=== PATIENT | female | born 1955 | race Caucasian/White ===

== ENCOUNTER 2018-06-23 13:18 | Emergency (ER) | payer OTHER ==
[~2018-06-23] VITALS: Ht 152.4 cm; Wt 101.6 kg
[~2018-06-23 13:18] MED LIST: ACET325T9 PO; ASCO100T4 PO; ASCO500T2 PO; CALC600T4 PO; CELE200C PO; CHOL100013 PO; CLON0.5T11 PO; DIPH25CA58 PO; ESZO3TAB28 PO; HYDR-3165 PO; HYDR12.58 PO; LEXAPRO5 MG PO; PARO10TA57 PO; POTA500T5 PO; SERT100T PO; TRAZ-85 PO; VITA100T5 PO; VITA1TAB3 PO
--- NOTE | 2018-06-23 13:40 | RAD ---
CT HEAD INDICATION: Neuro deficits COMPARISON: None Available. Exposure: One or more of the following individualized dose reduction techniques were utilized for this examination: 1. Automated exposure control 2. Adjustment of the mA and/or kV according to patient size 3. Use of iterative reconstruction technique TECHNIQUE: 5 mm contiguous axial images were obtained from the skull base to the vertex in both bone and soft tissue algorithm. FINDINGS: No abnormal attenuation within the brain parenchyma. No evidence of acute intracranial hemorrhage. No extra-axial fluid collections. No mass effect or midline shift. Ventricular size is appropriate. Basal cisterns are patent. No fractures identified.Rebolledo-white differentiation is preserved.Globes and orbits are within normal limits. Paranasal sinuses and mastoid air cells are clear. IMPRESSION: No acute intracranial findings. Dr. Fulton called at time of dictation. Electronically signed by: Alejandro Mcwilliams MD (06/23/2018 1:37 PM) [place] [id number]
--- NOTE | 2018-06-23 13:43 | PHYS DOC ---
Past History Past Medical History: Anxiety, Arthritis Past Surgical History: , Hysterectomy, Other Smoking: Non-smoker Alcohol Use: Occasionally Drug Use: None Adult General Chief Complaint Chief Complaint: NEURO SYMPTOMS/DEFICITS HPI HPI Patient is a 63 year old female who brought in by EMS because of altered level of consciousness and confusion. Patient is confused and unable to give history and does not remember the event. EMS reported that patient was found in her car off of the road for unknown time in a busy street [place] town and was not able to remember why she is in the car and brought happened to her. EMS reported patient was confused and had slurred speech that gradually improved partially. Patient also had problem with walking from her car today ambulance and had ataxia but was able to move her upper extremities without problem. Patient had blood pressure of 205/110 at the scene without history of hypertension. Review of Systems Review of Systems Unable to obtain because of confusion Allergies Allergies Allergies Coded Allergies Type Severity Reaction Last Updated Verified codeine Allergy Intermediate 05/04/15 Yes aspirin Allergy Mild rash 05/04/15 Yes Physical Exam Physical Exam Constitutional: Well nourished, mild acute distress, non-toxic appearance confused. [] HENT: Normocephalic, areas of tongue contusion and ecchymosis, oropharynx moist , no oral exudates, nose normal. [] Eyes: PERRLA, EOMI, conjunctiva normal, no discharge. [] Neck: Normal range of motion, no tenderness, supple, no stridor. [] Cardiovascular:Heart rate regular rhythm, no murmur [] Lungs & Thorax: Bilateral breath sounds clear to auscultation [] Abdomen: Bowel sounds normal, soft, no tenderness, no masses, no pulsatile masses. [] Skin: Warm, dry, no erythema, no rash. [] Back: No tenderness, no CVA tenderness. [] Extremities: No tenderness, no cyanosis, no clubbing, ROM intact, no edema. [] Neurologic: Alert and oriented X 1, normal motor function, normal sensory function, bilateral lower extremity weakness Psychologic: Unable to evaluate. EKG EKG EKG interpreted by me. EKG at 1537 showed sinus tachycardia at rate of 109, left atrial abnormality, poor R-wave progress in anteroseptal leads, no acute ST -T wave abnormalities. Radiology/Procedures Radiology/Procedures [address] [address] IMAGING REPORT Signed PATIENT: RICKIE MONTALVO ACCOUNT: [id number] : 1955 LOCATION: ER AGE: 63 SEX: F EXAM STATUS: REG ER ORD. PHYSICIAN: KATIA PATEL MD REASON: ALOC PROCEDURE: PORTABLE CHEST 1V EXAM: CHEST 1 VIEW History: Altered mental status COMPARISON: None available. TECHNIQUE: Single portable radiograph of the chest FINDINGS: Low lung volumes and technique accentuates heart size and pulmonary vascularity. Minimal bibasilar lung airspace opacity likely atelectasis or infiltrates. The costophrenic sulci are clear and well demarcated. IMPRESSION: Minimal bibasilar lung airspace opacities likely atelectasis or infiltrates. Electronically signed by: Alejandro Mcwilliams MD (06/23/2018 1:49 PM) [place] [id number] DICTATED AND SIGNED BY: ALEJANDRO MCWILLIAMS MD DATE: 06/23/181346 CC: KATIA PATEL MD; EVELIA GUO MD ~ [address] [address] IMAGING REPORT Signed PATIENT: RICKIE MONTALVO ACCOUNT: [id number] : 1955 LOCATION: ER AGE: 63 SEX: F EXAM STATUS: REG ER ORD. PHYSICIAN: KATIA PATEL MD REASON: NEURO DEFICITS PROCEDURE: CT CODE STROKE HEAD WO CT HEAD INDICATION: Neuro deficits COMPARISON: None Available. Exposure: One or more of the following individualized dose reduction techniques were utilized for this examination: 1. Automated exposure control 2. Adjustment of the mA and/or kV according to patient size 3. Use of iterative reconstruction technique TECHNIQUE: 5 mm contiguous axial images were obtained from the skull base to the vertex in both bone and soft tissue algorithm. FINDINGS: No abnormal attenuation within the brain parenchyma. No evidence of acute intracranial hemorrhage. No extra-axial fluid collections. No mass effect or midline shift. Ventricular size is appropriate. Basal cisterns are patent. No fractures identified.Rebolledo-white differentiation is preserved.Globes and orbits are within normal limits. Paranasal sinuses and mastoid air cells are clear. IMPRESSION: No acute intracranial findings. Dr. Patel called at time of dictation. Electronically signed by: Alejandro Mcwilliams MD (06/23/2018 1:37 PM) [place] [id number] DICTATED AND SIGNED BY: ALEJANDRO MCWILLIAMS MD DATE: 06/23/18 7930 CC: KATIA PATEL MD; EVELIA GUO MD ~ Course & Med Decision Making Course & Med Decision Making Pertinent Labs and Imaging studies reviewed. (See chart for details) Evaluation of patient in ER showed 63 year old female patient found confused and brought in by EMS to ER. Code stroke was ac at 1416 and agreed that patient is not a candidate for TPA. Tivated. Patient was not a candidate for TPA because of improving her confusion without any focal neuro deficit. Patient had biting care time with possible seizure without having history of seizure activity. Dr. Romeo on-call neurologist was consulted at 1416 and agreed that patient is not a candidate for TPA. Patient had a grand mal tonic-clonic seizure that last about 15 minutes with biting her tongue with urinary incontinence and increasing blood pressure. 2 mg of Ativan IV was given and Keppra [address] Quinn was informed at 1425 and accepted transfer to [facility]. Dragon Disclaimer Dragon Disclaimer This electronic medical record was generated, in whole or in part, using a voice recognition dictation system. Departure Departure: Disposition: [facility] ([facility] at 1426) Admitting Physician: Rima Quinn (accepted transfer to [facility] at 1425) Condition: GUARDED Referrals: EVELIA GUO MD (PCP) NIHSS - ED NIH Stroke Scale: NIH Stroke Scale Response (Comments) Value Level of Consciousness: 0 Alert/Responsive 0 LOC Questions: 1 Answers one correctly 1 LOC Commands: 0 Performs both tasks 0 Best Gaze: 0 Normal 0 Visual: 0 No visual loss 0 Facial Palsy: 0 Normal, symmetrical 0 Motor - Left Arm 0 No drift 0 Motor - Right Arm 0 No drift 0 Motor - Left Leg 3 Limb falls 3 Motor: Right Leg 3 Limb falls 3 Limb Ataxia: 2 Two limbs 2 Sensory: 0 No loss 0 Best Language: 0 Normal 0 Dysathria: 0 Normal 0 Extinction and Inattention: 0 Normal 0 Total 9 Critical Care Time Critical care time was 80 minutes exclusive of procedures. KATIA PATEL MD Jun 23, 2018 13:43
[2018-06-23] MEDS ORDERED: IV NORMAL SALINE 1,000ML 1,000 ML IV ONE (13:45)
[2018-06-23 13:46] LABS: BASO % 0 % (0-3); EOS % 0 % (0-3); HEMATOCRIT 42.4 % (36.0-47.0); HEMOGLOBIN 14.3 g/dL (12.0-15.5); LYMPH # 0.9 x10^3/uL (1.0-4.8); LYMPH % 6 % (24-48); MEAN CORPUSCULAR HEMOGLOBIN 30 pg (25-35); MEAN CORPUSCULAR HGB CONC 34 g/dL (31-37); MEAN CORPUSCULAR VOLUME 88 fL (79-100); MONO # 0.7 x10^3/uL (0.0-1.1); MONO % 5 % (0-9); NEUT # 13.8 x10^3uL (1.8-7.7); NEUT % 89 % (31-73); PLATELET COUNT 285 x10^3/uL (140-400); RED BLOOD COUNT 4.81 x10^6/uL (3.50-5.40); RED CELL DISTRIBUTION WIDTH 13.2 % (11.5-14.5); WHITE BLOOD COUNT 15.4 x10^3/uL (4.0-11.0)
--- NOTE | 2018-06-23 13:52 | RAD ---
EXAM: CHEST 1 VIEW History: Altered mental status COMPARISON: None available. TECHNIQUE: Single portable radiograph of the chest FINDINGS: Low lung volumes and technique accentuates heart size and pulmonary vascularity. Minimal bibasilar lung airspace opacity likely atelectasis or infiltrates. The costophrenic sulci are clear and well demarcated. IMPRESSION: Minimal bibasilar lung airspace opacities likely atelectasis or infiltrates. Electronically signed by: Alejandro Mcwilliams MD (06/23/2018 1:49 PM) [place] [id number]
[2018-06-23 14:00] LABS: ALBUMIN 3.7 g/dL (3.4-5.0); ALBUMIN/GLOBULIN RATIO 0.9 (1.0-1.7); CALCIUM 8.6 mg/dL (8.5-10.1); CREATININE 0.8 mg/dL (0.6-1.0); GFR 72.7; POTASSIUM 3.7 mmol/L (3.5-5.1); TOTAL BILIRUBIN 0.6 mg/dL (0.2-1.0); TOTAL PROTEIN 7.6 g/dL (6.4-8.2)
[2018-06-23 14:15] LABS: % BANDS 1 % (0-9); % LYMPHS 7 % (24-48); % SEGS 92 % (35-66); PLT ESTIMATE ADEQUATE (ADEQUATE)
[2018-06-23 14:16] LABS: PLATELET CLUMP PRESENT
[2018-06-23] MEDS ORDERED: LORazepam 2 MG/ML VIAL ONE (14:20)
--- NOTE | 2018-06-23 17:38 | EKG ---
[address] [address] Test Date: 2018-06-23 Test Time: 13:37:31 Pat Name: RICKIE MONTALVO Department: Room: Gender: F [employer] Department Chair: PENNY : 1955 Requested By: KATIA PATEL Order Number: [id number] Reading MD: Ashkan Ferreira Measurements Intervals [place] Rate: 109 P: 39 MO: 146 QRS: 38 QRSD: 78 T: 62 QT: 320 QTc: 432 Interpretive Statements SINUS TACHYCARDIA LEFT ATRIAL ABNORMALITY Electronically Signed On 07-01-2018 8:05:05 AUDIO VIDEO TECHNICIAN by Ashkan Ferreira
[2018-06-23 19:24] VITALS: BP 142/85
== END 2018-06-23 20:27 | disposition short-term general hospital (02) ==
LOC: ER 13:18
DX: G40.89 Other seizures (principal); R32 Unspecified urinary incontinence; M19.90 Unspecified osteoarthritis, unspecified site; Z88.5 Allergy status to narcotic agent; Z88.6 Allergy status to analgesic agent
CPT/HCPCS: 36415; 70450; 71045; 80053; 82550; 83880; 84484; 85007; 85025; 85610; 85730; 93005; 96361; 96365; 99285; G0480; J1953; J7030